=== PATIENT | female | born 1950 | race Caucasian/White ===

== ENCOUNTER → 2024-09-10 | Day surgery (SDC) | payer OTHER ==
[2024-09-03 11:16] LABS: BASOPHILS # (AUTO) 0.1 (0.0-0.1); BASOPHILS % 1.1 % (0.0-1.0); EOSINOPHILS # (AUTO) 0.2 (0.0-0.4); EOSINOPHILS % 3.4 % (0.0-6.0); HEMATOCRIT 40.6 % (34.2-44.1); HEMOGLOBIN 13.5 g/dL (12.0-16.0); LYMPHOCYTES % 44.3 % (18.0-39.1); MEAN CORPUSCULAR HEMOGLOBIN 31.9 pg (28-32); MEAN CORPUSCULAR HGB CONC 33.3 g/dL (31-35); MONOCYTES # (AUTO) 0.6 (0.2-0.8); MONOCYTES % 13.2 % (4.4-11.3); NEUTROPHILS # (AUTO) 1.7 (2.1-6.9); PLATELET COUNT 250 x10e3/uL (140-360); RED BLOOD COUNT 4.23 x10e6/uL (3.6-5.1); RED CELL DISTRIBUTION WIDTH 12.5 % (11.7-14.4)
[2024-09-03 11:44] LABS: CALCIUM 8.8 mg/dL (8.4-10.2); CREATININE, SERUM 0.7 mg/dL (0.57-1.11)
[~2024-09-10] MED LIST: AMLODIPINE BESYL5 MG PO; CYCLOPENTOLATE HCL 2% OPTH SOLN 2 ML BTL OP ONE; DIOVAN80 MG PO; FENTANYL CITRATE/PF 100MCG/2 ML INJ ONE; GATIFLOXACIN(OPTH) 5 ML LIQD ONE; HYDROCODON-ACE1 EA11 PO; LIDOCAINE HCL 2% LOCAL INJ 5 ML SDV VIAL INJ ONE; LYRICA100 MG PO; MIDAZOLAM HCL 2 MG/2 ML VIAL ONE; MILK THISTLE175 M2 PO; ONDANSETRON ODT4 MG PO; PHENYLEPHRINE HCL 2 ML DROPS ONE; PROPOFOL IV EMULSION 10 MG/ML 20 ML VIAL ONE; TETRACAINE HCL 0.5% OPTH SOLN 4 ML BTL ONE; WELLBUTRIN SR150 MG PO; XYZAL5 MG PO; [UNRECOGNIZED DRUG - OTHER] PO
[2024-09-10] MEDS: LACTATED RINGER'S 1,000 ML ONE (06:33)
[2024-09-10 08:06] VITALS: TEMP 97.6
[2024-09-10 08:20] VITALS: BP 149/89; PULSE 68; RESP 16; O2SAT 98
== END | disposition home or self-care (01) ==
LOC: OR 05:31
PROVIDERS: ATTEND Ophthalmology
DX: H25.11 Age-related nuclear cataract, right eye (principal); I10 Essential (primary) hypertension; I48.91 Unspecified atrial fibrillation; F41.9 Anxiety disorder, unspecified; F32.A Depression, unspecified; M19.90 Unspecified osteoarthritis, unspecified site; Z01.810 Encounter for preprocedural cardiovascular examination; Z01.812 Encounter for preprocedural laboratory examination; Z79.899 Other long term (current) drug therapy; Z87.891 Personal history of nicotine dependence
CPT/HCPCS: 36415; 66984; 80048; 85025; 93005; J2003; J2250; J2704; J7121; V2632